=== PATIENT | female | born 1955 | race Caucasian/White ===

== ENCOUNTER 2025-03-04 11:03 | Outpatient (OUT) | payer MEDICARE, SELFPAY ==
--- OUTSIDE RECORDS SUMMARY | 2025-03-04 11:10 | XMS_ITS | Encounter Summary ---
Author Organization [facility] Address [address] [place], [place] [id number] Care Team Providers Care Civil Rights Investigator Name Role Phone Soham Sanford DO Primary Care Provider [phone] Carlos Kearns Unavailable Jack Castorena MD, PhD Unavailable [phone] Jack Castorena MD, PhD Unavailable [phone] Pcp, Neha REFRACTORY GRINDER OPERATOR Primary Care Provider Unavailabl e Source Comments In the event this information is protected by the Federal Confidentiality of Alcohol and Drug AbusePatient Records regulations: The Federal rules restrict any use of the information to criminally investigate or prosecute any alcohol or drug abuse patient.[facility] Encounter Details Date Type Department Care Team (Late st Contact Info) Description 10/26/2013 Abstract Cardiology [address] [place] [address] Carlos Kearns [address] [place], [place] [id number] Social History Tobacco Use Types Packs/Day Years Used Date Smoking Tobacco: Former Cigarettes S tarted: 01/15/2013 Comments:Pt decreased nicoti ne in electronic cigarettes Alcohol Use Standard Drinks/Week Comments No 0 (1 standard drink = 0.6 oz pur e alcohol) Comments Unknown Sex and Gender Information Value Date Recorded Sex Assigned at Not on file Legal Sex Female 8:19 AM EST Gender Identity Not on file Sexual Orientation Not on file documented as of this encounter Plan of Treatment Not on file documented as of this encounter Visit Diagnoses Not on filedocumented in this encounter Care Teams Civil Rights Investigator Relationship Specialty Start Date End Date Soham Sanford DO PCP - General Internal Medicine 08/17/13 04/09/22 Neha Alexis APRN PCP - General 04/10/22 10/26/22 Carlos Kearns Primary Staff Physician Cardiology 12/25/14 6 Jack Castorena MD, PhD Primary Staff Physician Cardiology 12/12/18 Jack Castorena MD, PhD Primary Staff Physician Cardiology 12/12/18 documented as of this encounter
--- OUTSIDE RECORDS SUMMARY | 2025-03-04 11:10 | XMS_ITS | Clinical Summary ---
Author Organization [facility] Address [address] [place] [address] Care Team Providers Care Transfer Controller Name Role Phone Soham Sanford DO Primary Care Provider [phone] Ez Maier MD Unavailable [phone] Aria Ibarra CNP Unavailable [phone] Allergies Active Allergy Reactions Criticality Noted Date Comments Atorvastatin 02/28/2020 ANTIHYPERLIPEDEMICS Bupropion Hcl Itching 08/17/2013 Medications aspirin 81 MG EC tablet Take 81 mg by mouth daily . Active amLODIPine (NORVASC) 5 MG tablet Take 5 mg by mouth daily . Active carvediloL (COREG) 25 MG tablet Take 25 mg by mouth 2 (two) times a day with meals . Active ubidecarenone (coenzyme Q10) 60 mg cap Take by mouth daily . Active ezetimibe (ZETIA) 10 mg tablet Take 10 mg by mouth daily . Active losartan (Cozaar) 100 MG tablet Take 100 mg by mouth daily . Active multivitamin (THERAGRAN) per tablet Take 1 tablet by mouth daily . Active cholecalciferol, vitamin D3, 1,000 unit tablet Take 2,000 Units by mouth 2 (two) times a day . Active atorvastatin (LIPITOR) 80 MG tablet Take 80 mg by mouth daily . Active clopidogreL (PLAVIX) 75 mg tablet Take 75 mg by mouth daily . 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 She is now approximately 11 months post left carotid subclavian artery bypass graft by Dr. Maier. She admits that her claudication symptoms have completely resolved. Bilateral radial pulses are 2+. 06/17/2020 left carotid subclavian artery bypass graft by Dr. Maier Carotid duplex today shows bilateral internal carotid arteries with <50% stenosis and left carotid subclavian artery bypass graft widely patent. -We will repeat carotid duplex in 1 yr -Continue atorvastatin, Plavix, and aspirin -Maintain blood pressure per JNC 8 guidelines <140/90 Assessment & Plan (11/07/2020 11:37 AM EST): Iesha has history of symptomatic claudication to left upper extremity. She is now approximately 5 months post left carotid subclavian artery bypass graft by Dr. Maier. She admits that her claudication symptoms have completely resolved. Bilateral radial pulses are 2+. 06/17/2020 left carotid subclavian artery bypass graft by Dr. Maier Carotid duplex today shows bilateral internal carotid arteries with 1% to 19% stenosis and left carotid subclavian artery bypass graft widely patent. -We will repeat carotid duplex in 6 months -Continue atorvastatin, Plavix, and aspirin -Maintain blood pressure per JNC 8 guidelines <140/90 Subclavian artery stenosis, left 05/24/2020 Assessment & Plan (08/01/2020 4:11 PM EST): Jovani has history of symptomatic claudication to left upper extremity. She is now approximately 2 months post left carotid subclavian artery bypass graft by Dr. Maier. She admits that her claudication symptoms have completely resolved. Bilateral radial pulses are 2+. 06/17/2020 left carotid subclavian artery bypass graft by Dr. Maier Carotid duplex today shows bilateral internal carotid arteries with 1% to 19% stenosis and left carotid subclavian artery bypass graft widely patent. -We will repeat carotid duplex in 3 months -Continue atorvastatin, Plavix, and aspirin -Maintain blood pressure per JNC 8 guidelines <140/90 Assessment & Plan (05/24/2020 9:51 AM EDT): The patient has very symptomatic claudication in her left upper extremity. Any repetitive activity causes significant discomfort in her arm. She does not have any posterior circulation symptoms. The patient had arch and subclavian artery angiography which I reviewed by Dr. Carlos Kearns. It clearly shows eccentric calcific atherosclerosis of the subclavian artery adjacent to the vertebral artery. She is a poor candidate for stent placement because of the proximity to the vertebral artery and the atherosclerotic calcified arch of the aorta which puts her at risk of atheroembolization. It also puts her at risk of dissection. For symptom relief I think the patient would be best served by a carotid subclavian artery bypass. I explained the complications of the procedure including phrenic nerve injury and thoracic duct lymphatic leaking. Obviously there can be complications such as thrombosis of the bypass graft, wound infection and systemic complications from general anesthesia and operative surgery. The patient is severely symptomatic and wishes to proceed. Hypertension Assessment & Plan (05/14/2021 11:22 AM EDT): Well-controlled per JNC 8 guidelines at 149/73 -Managed by PCP Assessment & Plan (11/07/2020 10:59 AM EST): Elevated per JNC 8 guidelines at 141/59 -Managed by PCP Assessment & Plan (08/01/2020 4:10 PM EST): Elevated per JNC 8 guidelines at 172/82 -Managed by PCP Family History Medical History Relation Comments Diabetes Brother Heart disease Brother Diabetes Father Heart disease Father No Known Problems Mother Diabetes Sister Heart disease Sister Relation Status Comments Brother Father Mother Sister Social History Tobacco Use Types Packs/Day Years Used Date Smoking Tobacco: Former Cigarettes 1 40 1 972 - 2011 Smokeless Tobacco: Current Alcohol Use Standard Drinks/Week Comments Yes 0 (1 standard drink = 0.6 oz pur e alcohol) Rare Comments Unknown Sex and Gender Information Value Date Recorded Sex Assigned at Not on file Legal Sex Female 8:35 AM EDT Gender Identity Female 05/11/2021 11:28 AM EDT Sexual Orientation Straight 05/11/2021 11 :28 AM EDT Last Filed Vital Signs Vital Sign Reading Time Taken Comments Blood Pressure 132/80 05/14/2021 11:07 AM EDT Pulse 60 05/14/2021 10:46 AM EDT Temperature 36.4 C (97.6 F) 06/18/2020 8:45 AM EDT Respiratory Rate 16 08/01/2020 3:44 PM EST Oxygen Saturation 93% 06/18/2020 8:45 AM EDT Inhaled Oxygen Concentration - - Weight 83.5 kg (184 lb) 05/14/2021 10:46 AM EDT Height 162.6 cm (5' 4 ) 05/14/2021 10:46 AM EDT Body Mass Index 31.58 05/14/2021 10:46 AM EDT Plan of Treatment Health Maintenance Due Date Last Done Comments CT Colonography 1954 Colonoscopy 1954 Colorectal Cancer Screening/Monitoring 1954 Dexa Scan 1955 Fecal DNA 1954 Fecal occult blood test (FOBT,FIT) 1954 Tetanus: Every 10yrs 1954 Wellness Visit 1957 Depression Screening/Follow-Up (PHQ-2/9) 1966 Hepatitis C Screening 1972 Pneumococcal Vaccine: Age 50 + (1 of 1 - PCV) 2004 Zoster Vaccines (1 of 2) 2004 Falls Risk Assessment 2019 COVID-19 Vaccine ( season) 05/27/202406/2021, 01/12/2021 Influenza Vaccine (Season Ended) 2025 Respiratory Syncytial Virus Immunization: Risk, 60-74 Risk, or 75+ (1 - 1-dose 75+ series) 2029 Medical Devices Implanted Type Area Digital Media Director Device Identifier Shelf Expiration Date Model / Serial / Lot Graft 16 X 8mm X 50cm Hemagard Knitted Bifurcated - Sna Implanted:Qty: 1 on 06/17/2020 by Ez Maier MD at [facility] Graft Left: Carotid [employer] 12/24/2024 [id number] / NA / [id number] Hemostat 8 X 12.5cm X 10mm Surgifoam Gelatin Sponge - Sna Implanted:Qty: 2 on 06/17/2020 by Ez Maier MD at [facility] Left: Carotid [employer] 01/24/2024 1974 / NA / [id number] Insurance MEDICARE PART A & B Member Subscriber Plan / Payer (Ef fective 2019-Present) Name:Iesha Ramirez Member ID:[id number] Relation to Subscriber:Self Name:Iesha Ramirez Subscriber ID:[id number] Payer ID:Not on file Group ID:Not on file Type:Not on file [place] [facility] [place] [facility] [place] [address] [address] [place] [address] [employer]/CONTINENTAL LIFE Advance Directives For more information, please contact: [phone] * Full Code - Unverified (Latest Code Status on File) Date Activated Date Inactivated Comments 06/17/2020 5:04 PM 06/18/2020 12:08 PM Care Teams Transfer Controller Relationship Specialty Start Date End Date Soham Sanford DO [address] [place] [address] [place] [address] PCP - General Internal Medicine 05/23/20 Ez Maier MD [address] [place] [address] Vascular Surgery 05/23/20 Aria Ibarra CNP [address] [place] [address] Nurse Practitioner Nurse Practitioner 10/14/20
--- OUTSIDE RECORDS SUMMARY | 2025-03-04 11:10 | XMS_ITS | Clinical Summary ---
Author Organization [facility] Address [address] [place] [address] Care Team Providers Care Saw Man Name Role Phone Jack Castorena MD, PhD Unavailable [phone] Allergies Active Allergy Reactions Criticality Noted Date Comments Bupropion Hcl Itching 08/17/2013 Medications CALCIUM CARBONATE/VITAMIN D3 (VITAMIN D-3 ORAL) Take 1 tablet by mouth once daily. Active carvedilol (COREG) 25 mg tablet Take 25 mg by mouth twice daily with meals. Active atorvastatin (LIPITOR) 80 mg tablet Take 80 mg by mouth once daily. Active Aspirin 81 mg tab Take 81 mg by mouth once daily. Currently not taking Active clopidogrel (PLAVIX) 75 mg tabletIndications :PAD (peripheral artery disease),Essentia l hypertension with goal blood pressure less than 130/80,S/P insertion of iliac artery stent Take 1 tablet by mouth 3 times a WEEK. Mon-Wed-Tue 6 Active Active Problems Problem Noted Date Diagnosed Date HLD (hyperlipidemia) 12/31/2014 HTN (hypertension) 12/31/2014 PAD (peripheral artery disease) 12/31/2014 S/P insertion of iliac artery stent 12/31/2014 Family History Medical History Relation Comments Developmental problem Daughter Diabetes Father Coronary Artery Disease Paternal Grandfather Heart Paternal Grandfather Relation Status Comments Daughter Father Paternal Grandfather Social History Tobacco Use Types Packs/Day Years Used Date Smoking Tobacco: Former Cigarettes 1 41.3 0 09/26/1971 - 01/15/2013 Comments:Pt decreased nicoti ne in electronic cigarettes Alcohol Use Standard Drinks/Week Comments No 0 (1 standard drink = 0.6 oz pur e alcohol) Comments Unknown Sex and Gender Information Value Date Recorded Sex Assigned at Not on file Legal Sex Female 8:19 AM EST Gender Identity Not on file Sexual Orientation Not on file 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 Job 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 Not on file Not on file Not on file Last Filed Vital Signs Vital Sign Reading Time Taken Comments Blood Pressure 158/79 01/29/2016 9:42 AM EDT Pulse 65 01/29/2016 9:42 AM EDT Temperature 36.2 C (97.2 F) 01/29/2016 9:42 AM EDT Respiratory Rate 16 01/29/2016 9:42 AM EDT Oxygen Saturation 98% 01/29/2016 9:42 AM EDT Inhaled Oxygen Concentration - - Weight 79.4 kg (175 lb) 01/29/2016 9:42 AM EDT Height 165.1 cm (5' 5 ) 01/29/2016 9:42 AM EDT Body Mass Index 29.12 01/29/2016 9:42 AM EDT Plan of Treatment Health Maintenance Due Date Last Done Comments Anxiety Screening 1972 Depression Screening 1972 Hepatitis C Screening 1972 DTaP,Tdap,Td Vaccine (1 - Tdap) [address] Colonography 1999 Cologuard (FIT-DNA) 1999 Colonoscopy 1999 Colorectal Cancer Screening 1999 Diabetes Screening 1999 Fecal Occult Blood 1999 Lipid Screening 1999 Sigmoidoscopy 1999 Pneumococcal Vaccine: 50+ (1 of 1 - PCV) 2004 Shingrix Vaccine (1 of 2) 2004 Bone Density Screening 2019 Covid-19 Vaccine ( - season) 2024 Advance Directive Discussion 09/26/2024 Influenza Vaccine (Season Ended) 2025 RSV Vaccine (1 - 1-dose 75+ series) 2029 Insurance [facility] Care Teams Saw Man Relationship Specialty Start Date End Date Jack Castorena MD, PhD Primary Staff Physician Cardiology 12/12/18
--- OUTSIDE RECORDS SUMMARY | 2025-03-04 11:10 | XMS_ITS | Clinical Summary ---
Author Organization [facility] Address [address] [place] [address] Care Team Providers Care Web Press Operator Helper Offset Name Role Phone Soham Sanford DO Primary Care Provider [phone] Allergies Active Allergy Reactions Criticality Noted Date Comments Bupropion Itching 02/18/2022 Medications aspirin EC [address] Take 1 tablet by mouth daily. Active carveDILOL 12.5 MG tablet Take 2 tablets by mouth 2 times daily with meals. Active LOSARTAN POTASSIUM PO Take 100 mg by mouth daily. Active ezetimibe 10 MG tablet Take 1 tablet by mouth daily. Active Vitamin D3 25 MCG (1000 UT) tablet Take 2 tablets by mouth 2 times daily. Active Coenzyme Q10 (CO Q 10 PO) Take by mouth daily. Active Multiple Vitamin (multivitamin) tablet Take 1 tablet by mouth daily. Active atorvastatin 80 MG tablet Take 1 tablet by mouth daily. Active clopidogrel 75 MG tabletIndicatio ns:Subclavian artery stenosis, left Take 1 tablet by mouth daily. 30 tablet 02/09/2021 Active Zinc Sulfate (ZINC-220 PO) Take 220 mg by mouth daily. Active amLODIPine 10 MG tablet Take 1 tablet by mouth daily. 90 tablet 3 08/12/2022 Active hydroCHLOROthia zide 25 MG tablet Take 1 tablet by mouth daily. Active Active Problems Problem Noted Date Diagnosed Date PAD (peripheral artery disease) 04/18/2020 Overview (04/18/2020): Added automatically from request for surgery [id number] body mass index of 40.0-49.9 02/29/2020 Encounters Date Type Department Care Team Description 02/15/2025 10:00 AM EDT Office Visit [facility] [address] [place] [address] Carlos Kearns MD Stenosis of subclavian bypass, sequela (Primary Dx); Essential hypertension, benign; Subclavian artery disease; Mixed hyperlipidemia; Antiplatelet or antithrombotic long-term use; Encounter for long-term current use of medication from Last 3 Months Family History Medical History Relation Name Comments Diabetes Father Heart Disease - Other Father Diabetes Sister Relation Name Status Comments Father Sister Social History Tobacco Use Types Packs/Day Years Used Date Smoking Tobacco: Former Smokeless Tobacco: Never Tobacco Cessation:Counseling Given: Not Answered Alcohol Use Standard Drinks/Week Comments Yes 0 (1 standard drink = 0.6 oz pur e alcohol) AUDIT-C Answer Date Recorded Q1: How often do you have a drink containing alc ohol? Monthly or less 08/28/2020 Average Number of Drinks Not on file 020 Frequency of Binge Drinking Not on file 11/2019 Comments No Sex and Gender Information Value Date Recorded Sex Assigned at Not on file Legal Sex Female 2:08 PM EDT Gender Identity Not on file Sexual Orientation Not on file Last Filed Vital Signs Vital Sign Reading Time Taken Comments Blood Pressure 154/68 02/15/2025 9:58 AM EDT Pulse 51 02/15/2025 9:58 AM EDT Temperature 36.5 C (97.7 F) 05/14/2020 12:40 PM EDT Respiratory Rate 18 08/03/2024 10:46 AM EST Oxygen Saturation 96% 02/15/2025 9:58 AM EDT Inhaled Oxygen Concentration - - Weight 72.8 kg (160 lb 9.6 oz) 02/15/2025 9:58 A M EDT Height 162.6 cm (5' 4 ) 02/15/2025 9:58 AM EDT Body Mass Index 27.57 02/15/2025 9:58 AM EDT Plan of Treatment Upcoming Encounters Date Type Department Care Team (Late st Contact Info) Description 09/06/2025 11:00 AM EST Office Visit [facility] Cardiology [address] [place] [address] Carlos Kearns MD [address] [place] [address] Health Maintenance Due Date Last Done Comments DEXA SCAN DISCUSSION 1954 HEPATITIS C VIRUS SCREENING 1954 TETANUS 1954 TDAP (ADULT) 1973 CERVICAL CANCER SCREENING DISCUSSION 1975 MAMMOGRAM SCREENING DISCUSSION 1994 COLORECTAL CANCER SCREENING DISCUSSION 1999 PNEUMOCOCCAL VACCINE SERIES (1 of 1 - PCV) 2004 POTASSIUM 05/14/2021 05/14/2020 COVID-19 VACCINE (3 - 2023-2 5 season) 2024 02/02/2021, 01/12/2021 INFLUENZA VACCINE (Season Ended) 2025 LIPID SCREENING 08/28/2025 08/28/2020 RSV VACCINE (1 - 1-dose 75+ series) 2029 ZOSTER (SHINGLES) VACCINE Completed 2023, 07/29/2023 HEP B VACCINE Aged Out No longer elig ible based on patient's age to complete this topic Procedures Procedure Name Priority Date/Time Associated Diagnosis Comments LABS (OUTSIDE) Routine 02/14/2025 11:11 AM EDT LIPID PANEL W CALCULATED LDL Routine 08/28/2020 3:05 PM EST Mixed hyperlipidemia BASIC METABOLIC PANEL STAT 05/14/2020 8:50 AM EDT from Last 3 Months or Most Recently Relevant to Health Maintenance Results * LABS (OUTSIDE) (02/14/2025 11:11 AM EDT) us Historical Provider LAB SEND OUTS Final Result * LIPID PANEL W CALCULATED LDL (08/28/2020 3:05 PM EST) CHOLESTEROL 122 107 - 217 MG/DL [address] TRIGLYCERIDE 107 0 - 150 MG/DL [address] HDL CHOLESTEROL 42 33 - 75 MG/DL [address] LDL CHOLESTEROL, CALCULATED 59 MG/DL [address] VLDL Cholesterol, Calculated 21 5.0 - 25 MG/DL [address] TCHOL/HDL RATIO, MANUAL ENTER 2.[address] Comment: RISK TOTAL/HDL RATIO MEN WOMEN 1/2 AVERAGE 3.43 3.27 AVERAGE 4.97 4.44 2X AVERAGE 9.55 7.05 3X AVERAGE 23.99 11.04 Testing performed at [place], [place] [address] Blood 08/28/2020 3:05 PM EST 08/28/2020 3:06 PM EST us Carlos Kearns MD CHEMISTRY ORDERABLES Final Re sult [address] [address] * (ABNORMAL) BASIC METABOLIC PANEL (05/14/2020 8:50 AM EDT) Glucose 122(H) 70 - 100 MG/DL [address] Comment: NORMAL <100 mg/dL PREDIABETES 101-126 mg/dL DIABETES 126 mg/dL or higher BUN 17 7 - 20 MG/DL [address] CREATININE SERUM 0.80 0.7 - 1.2 MG/DL [address] SODIUM 139 137 - 145 MMOL/L [address] Potassium 3.9 3.5 - 5.1 MMOL/L [address] CHLORIDE 103 98 - 107 MMOL/L [address] Comment:Please note: Triglyc eride levels of 600mg/dL or higher may positively bias chloride results by approximately 2.1 mmol CARBON DIOXIDE (CO2) 26 22 - 30 MMOL/L [address] ANION GAP 10 8 - 16 MMOL/L [address] CALCIUM 9.5 8.4 - 10.2 MG/DL [address] ESTIMATED GFR, NON AMER >60 ml/min/1. 73sq.m [address] ESTIMATED GFR, >60 ml/min/1. 73sq.m [address] GFR COMMENT Average GFR for 60-69 years old = 85. [address] Comment: Chronic Kidney disease, GFR = <60. Kidney failure, GFR = <15. The GFR estimate is not adjusted for extreme body surface area or acute process, nor has it been validated for women or ethnic groups other than and . Testing performed at [place], [place] [address] Blood 05/14/2020 8:50 AM EDT 05/14/2020 8:52 AM EDT us Carlos Kearns MD CHEMISTRY ORDERABLES Final Re sult [address] [address] from Last 3 Months or Most Recently Relevant to Health Maintenance Insurance MEDICARE A AND B MEDICARE SUPPLEMENT Advance Directives For more information, please contact: [phone] (7:30 AM - 6PM [facility], Tuesday-Tuesday) Documents on File Type Date Recorded Patient Maintenance Shop Manager Expl anation Advance Directives/Living Will 04/18/2020 2:56 PM patient advance directive assessment Care Teams Web Press Operator Helper Offset Relationship Specialty Start Date End Date Soham Sanford DO PCP - General Internal Medicine 02/29/20
[2025-03-04 11:52] LABS: Bilirubin Urine NEGATIVE (NEGATIVE); Blood Urine NEGATIVE (NEGATIVE); Clarity Urine CLEAR (CLEAR); Color Urine LT. YELLOW (YELLOW); Glucose Urine UA NEGATIVE (NEGATIVE); Ketones Urine NEGATIVE (NEGATIVE); Leukocyte Esterase Urine TRACE (NEGATIVE); Nitrite Urine NEGATIVE (NEGATIVE); Protein Urine NEGATIVE (NEG/TRACE); Urobilinogen Urine 0.2 EU/dL (0.2-1.0)
[2025-03-04 12:09] LABS: Anion Gap 14.2; BUN Creatinine Ratio 15.3; Carbon Dioxide 25.5 mmol/L (21.0-32.0); Chloride 98 mmol/L (98-107); Estimated GFR (African America 39 (>=60 mL/min/1.73m^2); Estimated GFR (Non-African Ame 33 (>=60 mL/min/1.73m^2); Glucose 125 mg/dL (74-106); Potassium 3.7 mmol/L (3.5-5.1); Sodium 134 mmol/L (136-145)
[2025-03-04 12:43] LABS: Creatinine Urine Random 84.27 mg/dL (20.00-300.00); Protein Creatinine Ratio Urine 0.13; Total Protein Urine Random 10.9 mg/dL (<=11.9)
== END 2025-03-04 11:04 | disposition home or self-care (01) ==
LOC: LAB 11:07
PROVIDERS: PCP Internal Medicine; Visit Provider Internal Medicine
DX: N17.9 Acute kidney failure, unspecified (principal); I10 Essential (primary) hypertension; E11.65 Type 2 diabetes mellitus with hyperglycemia
CPT/HCPCS: 36415; 80048; 81003; 82570; 84156

== ENCOUNTER 2025-07-12 08:43 | Outpatient (OUT) | payer MEDICARE, SELFPAY ==
--- NOTE | 2025-07-12 08:45 | US_ITS ---
The [address] [address] Patient Name: BLANE BACK MRN: [id number] date: 1955 Sex: F Assigned Patient Location: US Current Patient Location: US Accession/Order Number: [id number] Exam Date: 07/12/2025 08:48 Report Date: 07/12/2025 09:51 At the request of: SABINO MOREL DO Procedure: US renal BI BILATERAL RENAL AND BLADDER ULTRASOUND CLINICAL HISTORY: Renal cysts seen on prior lumbar MRI and chest CT, N28.1 COMPARISON: MRI 05/17/[address] 01/04/2020 The right kidney is atrophic with craniocaudal dimension of 7.7 cm. The left kidney is normal in size measuring 11.4 cm. A 5 mm echogenic focus with twinkle artifact is seen at the inferior pole of the left suggesting a stone. No hydronephrosis is identified. There is a small 8 mm cyst at the superior pole on the right. On the left, there are multiple cortical cysts with the largest measuring 2.3 x 1.5 x 1.8 cm with superior pole. No solid masses were documented. There is no perinephric fluid. The urinary bladder is not well distended with a volume of 32 ml. No obvious contour or intraluminal abnormalities are seen. US/US renal BI IMPRESSION: ATROPHIC RIGHT KIDNEY. POSSIBLE LEFT NEPHROLITHIASIS. SMALL RENAL CYSTS. NO OBSTRUCTIVE UROPATHY. Impression dictated by: Harini Pugh M.D. 07/12/2025 9:51 AM Dictation Location: [place] [address] Electronically authenticated by: [id number] Y Date: 07/12/2025 09:51
--- OUTSIDE RECORDS SUMMARY | 2025-07-12 08:45 | XMS_ITS | Clinical Summary ---
Author Organization [facility] Healthcare Address [address] [place] [address] Care Team Providers Care Musical Therapist Name Role Phone Soham Sanford Primary Care Provider [phone] Allergies Active Allergy Reactions Criticality Noted Date Comments Bupropion Itching 08/17/2013 Other Reaction(s): rash Medications acetaminophen (Tylenol) 500 MG tablet Take 1,000 mg by mouth 03/10/2025 Active amLODIPine (Norvasc) 10 MG tablet .COMPLEX 07/03/2024 Active aspirin 81 MG EC tablet 1 (one) time each day at the same time Active atorvastatin (Lipitor) 80 MG tablet .COMPLEX 10/06/2024 Active carvedilol (Coreg) 12.5 MG tablet Take 25 mg by mouth in the morning and 25 mg in the evening. Take with meals. Active cholecalciferol (Vitamin D-3) 50 MCG (1999) capsule Take 1 capsule by mouth in the morning and 1 capsule at noon and 1 capsule in the evening. Active clopidogrel (Plavix) 75 MG tablet Take 75 mg by mouth in the morning. Active coenzyme Q-10 100 MG capsule Take 100 mg by mouth in the morning. Active ezetimibe (Zetia) 10 MG tablet .COMPLEX 01/04/2025 Active losartan (Cozaar) 100 MG tablet Take 100 mg by mouth in the morning. Active losartan (Cozaar) 50 MG tablet Daily 03/10/2025 Active Multiple Vitamin (Multi-Vitamin) tablet Take 1 tablet by mouth in the morning. Active fluticasone (Flonase) 50 MCG/ACT nasal sprayIndication s:ETD (Eustachian tube dysfunction), left Two sprays on the left side twice daily. Shake gently. Before first use, prime pump. After use, clean tip and replace cap. 48 g 3 05/08/2025 Active Active Problems Problem Noted Date Diagnosed Date Acute lower respiratory infection 05/06/2025 Acute sinusitis 05/06/2025 JUAN C (acute kidney injury) 05/06/2025 Chronic kidney disease 05/06/2025 Chronic otitis media of left ear 05/06/2025 Eustachian tube dysfunction 05/06/2025 Eustachian tube salpingitis 05/06/2025 Otitis media 05/06/2025 Familial hypercholesterolemia 05/06/2025 Mixed conductive and sensori neural hearing loss of right ear with restricted hearing of left ear 05/06/2025 Renal cyst 05/06/2025 Overview (05/06/2025): US: 2.9cm left renal cyst w/ layering debris, 1cm left renal cyst w/ calcification and septations - 02/2025 Sensation of plugged ear on left side 05/06/2025 Overweight 05/06/2025 Type 2 diabetes mellitus with hyperglycemia 04/26 Epigastric abdominal pain 03/18/2025 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 03/07/25 @ [facility] GERD (gastroesophageal reflux disease) Lung nodule 03/07/2025 Overview (05/06/2025): CT ABD 03/06/25: Indeterminate 1.0 cm right lower lobe groundglass nodular opacity may represent a focal infectious/inflammatory process. 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 06/17/2020 Overview (05/06/2025): s/p left ICA-left to SCA bypass Stenosis of left subclavian artery 05/24/2020 Overview (05/06/2025): s/p left carotid-subclavian bypass Obesity, morbid, BMI 40.0-49.9 02/29/2020 HLD (hyperlipidemia) 12/31/2014 Primary hypertension 12/31/2014 S/P insertion of iliac artery stent 12/31/2014 Encounters Date Type Department Care Team Description 05/08/2025 10:30 AM EDT Office Visit [facility] [address] [place] [address] Cathi Chua MD Chronic otitis media of left ear (Primary Dx); ETD (Eustachian tube dysfunction), left 05/08/2025 Bamboo flowsheet [facility] [address] [place] [address] Cathi Chua MD 05/08/2025 Travel from Last 3 Months Social History Tobacco Use Types Packs/Day Years Used Date Smoking Tobacco: Former Cigarettes Smokeless Tobacco: Never Tobacco Cessation:Counseling Given: Not Answered Alcohol Use Standard Drinks/Week Comments Not Currently 0 (1 standard drink = 0.6 oz pur e alcohol) Occ Comments Unknown Sex and Gender Information Value Date Recorded Sex Assigned at Not on file Legal Sex Female 6:40 PM EDT Gender Identity Not on file Sexual Orientation Not on file Last Filed Vital Signs Vital Sign Reading Time Taken Comments Blood Pressure 150/63 05/08/2025 10:36 AM EDT Pulse 64 05/08/2025 10:36 AM EDT Temperature - - Respiratory Rate - - Oxygen Saturation - - Inhaled Oxygen Concentration - - Weight 69.9 kg (154 lb) 05/08/2025 10:36 AM EDT Height 162.6 cm (5' 4 ) 05/08/2025 10:36 AM EDT Body Mass Index 26.43 05/08/2025 10:36 AM EDT Plan of Treatment Upcoming Encounters Date Type Department Care Team (Late st Contact Info) Description 07/29/2025 9:00 AM EST Clinical Support [facility] [address] [facility] [address] [place] [phone] Lur[facility] aBll, [facility] [address] [facility] [place] [address] 07/31/2025 9:10 AM EST Office Visit [facility] [address] [facility] [address] [place] [phone] Cathi Chua MD [address] [facility] [address] [place], [place] [id number] Health Maintenance Due Date Last Done Comments CT Colonography 1954 Colonoscopy 1954 Colorectal Cancer Screening 1954 FIT-DNA 1954 FIT 1954 FOBT 1954 Sigmoidoscopy 1954 Mammogram 1994 Influenza Vaccine (#1) 2025 Pneumococcal Vaccine: 65+ Years Completed , 12/26/2019 Insurance MEDICARE [employer] Care Teams Musical Therapist Relationship Specialty Start Date End Date Soham Sanford DO [address] [place] [address] PCP - General Internal Medicine 04/22/25
--- OUTSIDE RECORDS SUMMARY | 2025-07-12 08:45 | XMS_ITS | Encounter Summary ---
Author Organization [facility] Address [address] [id number] Care Team Providers Care Management Psychologist Name Role Phone Jack Castorena MD, PhD Unavailable [phone] Soham Sanford DO Primary Care Provider [phone] Source Comments In the event this information is protected by the Federal Confidentiality of Alcohol and Drug AbusePatient Records regulations: The Federal rules restrict any use of the information to criminally investigate or prosecute any alcohol or drug abuse patient.[facility] Reason for Visit * Reason Comments Appointment Encounter Details Date Type Department Care Team (Late st Contact Info) Description 03/13/2025 Telephone NOC [address] [id number] (Hist), No Pcp Appointment Social History Tobacco Use Types Packs/Day Years Used Date Smoking Tobacco: Former Cigarettes 1 41.3 0 09/26/1971 - 01/15/2013 Comments:Pt decreased nicoti ne in electronic cigarettes Alcohol Use Standard Drinks/Week Comments Not Currently 0 (1 standard drink = 0.6 oz pur e alcohol) Area Deprivation Index Answer Date Robert rded National Score (1-100), lower number is lower ri sk 67 03/07/2025 State Score (1-10), lower number is lower risk 5 03/07/2025 Data from: https://www.neighborhoodatlas.medicine.[facility]/. 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 Answer Date of Assessment Author No 03/10/2025 12:56 PM EDT Yael Mattson RN * Are you blind or do you have serious difficulty seeing, even when wearing glasses? Answer Date of Assessment Author No 03/10/2025 12:56 PM EDT Yael Mattson RN * Do you have serious difficulty walking or climbing stairs? Answer Date of Assessment Author No 03/10/2025 12:56 PM EDT Yael Mattson RN * Do you have difficulty dressing or bathing? Answer Date of Assessment Author No 03/10/2025 12:56 PM EDT Yael Mattson RN * Because of a physical, mental, or emotional condition, do you have difficulty doing errands alone such as visiting a doctor's office or shopping? Answer Date of Assessment Author No 03/10/2025 12:56 PM EDT Yael Mattson RN documented as of this encounter Mental Status * Because of a physical, mental, or emotional condition, do you have serious difficulty concentrating, remembering, or making decisions? Answer Entry Date Author No 03/10/2025 12:56 PM EDT Yael Mattson RN documented in this encounter Miscellaneous Notes * Telephone Encounter - Fer Fermin - 03/13/2025 10:05 AM EDT Reason for call: Pt called and she would like to schedule an appt with Vascular surgery Contact name: Home and cell number:[phone] Diagnosis: Renal artery stenosis, mesenteric stenosis, PAD with claudication Fer Gonzalez documented in this encounter Plan of Treatment Upcoming Encounters Date Type Department Care Team (Late st Contact Info) Description 09/16/2025 10:00 AM EST Office Visit Vascular Surgery [address] [place] [address] PAD (peripheral artery disease) 09/16/2025 11:00 AM EST Office Visit Vascular Surgery [address] [place] [address] PAD (peripheral artery disease) 09/16/2025 12:30 PM EST Office Visit Vascular Surg Dept [address] [place] [address] Fannie Flowers MD [address] [place] [address] PAD (peripheral artery disease) documented as of this encounter Visit Diagnoses Not on filedocumented in this encounter Care Teams Management Psychologist Relationship Specialty Start Date End Date Soham Sanford DO [address] [place] [address] [place] [address] PCP - General Internal Medicine 04/01/25 Jack Castorena MD, PhD Primary Staff Physician Cardiology 12/12/18 documented as of this encounter
--- OUTSIDE RECORDS SUMMARY | 2025-07-12 08:45 | XMS_ITS | Clinical Summary ---
Author Organization [facility] Address [address] [place] [address] Care Team Providers Care Manager Warehouse Name Role Phone Soham Sanford DO Primary Care Provider [phone] Ez Maier MD Unavailable [phone] Aria Ibarra CNP Unavailable [phone] Allergies Active Allergy Reactions Criticality Noted Date [...] Risk Assessment 2019 COVID-19 Vaccine ( season) 05/27/202506/2021, 01/12/2021 Influenza Vaccine (#1) 2025 Respiratory Syncytial Virus Immunization: Risk, 60-74 Risk, or 75+ (1 - 1-dose 75+ series) 2029 Medical Devices Implanted Type Area Radiology Administrator Device Identifier Shelf Expiration Date Model / Serial / Lot Graft 16 X 8mm X 50cm Hemagard Knitted Bifurcated - Sna Implanted:Qty: 1 on 06/17/2020 by Ez Maier MD at [facility] Graft Left: Carotid [employer] 12/24/2024 [id number] / NA / [id number] Hemostat 8 X 12.5cm X 10mm Surgifoam Gelatin Sponge - Sna Implanted:Qty: 2 on 06/17/2020 by Ez Maier MD at [facility] Left: Carotid [employer] 01/24/2024 [id number] / NA / [id number] Insurance MEDICARE PART A & B Member Subscriber Plan / Payer (Ef fective 2019-Present) Name:Iesha Ramirez Member ID:[id number] Relation to Subscriber:Self Name:Iesha Ramirez Subscriber ID:[id number] Payer ID:Not on file Group ID:Not on file Type:Not on file Address: [facility] [address] PART A CLAIMS [address] [address] [place] [address] [employer]AL LIFE Advance Directives For more information, please contact: [phone] * Full Code - Unverified (Latest Code Status on File) Date Activated Date Inactivated Comments 06/17/2020 5:04 PM 06/18/2020 12:08 PM Care Teams Manager Warehouse Relationship Specialty Start Date End Date Soham Sanford DO [address] [place] [address] [place] [address] PCP - General Internal Medicine 05/23/20 Ez Maier MD [address] [place] [address] Vascular Surgery 05/23/20 Aria Ibarra CNP [address] [place] [address] Nurse Practitioner Nurse Practitioner 10/14/20
--- OUTSIDE RECORDS SUMMARY | 2025-07-12 08:46 | XMS_ITS | Encounter Summary ---
Author Organization [facility] Address [address] [place], [place] [id number] Care Team Providers Care Vegetable Sorter Name Role Phone Soham Sanford DO Primary Care Provider [phone] Carlos Kearns Unavailable Jack Castorena MD, PhD Unavailable [phone] Jack Castorena MD, PhD Unavailable [phone] Pcp, No Primary Care Provider Unavailabl e Soham Sanford DO Primary Care Provider [phone] Source Comments In the event this information is protected by the Federal Confidentiality of Alcohol and Drug AbusePatient Records regulations: The Federal rules restrict any use of the information to criminally investigate or prosecute any alcohol or drug abuse patient.[facility] Encounter Details Date Type Department Care Team (Late st Contact Info) Description 10/26/2013 Abstract Cardiology [address] [place] [address] Carlos Kearns [address] [place] [address] Social History Tobacco Use Types Packs/Day Years [...] as of this encounter Plan of Treatment Upcoming Encounters Date Type Department Care Team (Late st Contact Info) Description 09/16/2025 10:00 AM EST Office Visit Vascular Surgery [address] [place] [address] PAD (peripheral artery disease) 09/16/2025 11:00 AM EST Office Visit Vascular Surgery [address] [place] [address] PAD (peripheral artery disease) 09/16/2025 12:30 PM EST Office Visit Vascular Surg Dept [address] [place] [address] Fannie Flowers MD [address] [place], [place] [phone] PAD (peripheral artery disease) documented as of this encounter Visit Diagnoses Not on filedocumented in this encounter Care Teams Vegetable Sorter Relationship Specialty Start Date End Date Soham Sanford DO PCP - General Internal Medicine 08/17/13 04/09/22 Pcp, Neha PCP - General 04/10/22 10/26/22 Soham Sanford DO [address] [place] [address] PCP - General Internal Medicine 04/01/25 Carlos Kearns Primary Staff Physician Cardiology 12/25/14 6 Jack Castorena MD, PhD Primary Staff Physician Cardiology 12/12/18 Jack Castorena MD, PhD Primary Staff Physician Cardiology 12/12/18 documented as of this encounter
--- OUTSIDE RECORDS SUMMARY | 2025-07-12 08:46 | XMS_ITS | Clinical Summary ---
Author Organization [facility] Address [address] [facility] [place] [address] Care Team Providers Care Lead Esthetician Name Role Phone Soham Sanford DO Primary Care Provider [phone] Allergies Active Allergy Reactions Criticality Noted Date [...] Take 1 tablet by mouth daily. Active acetaminophen 500 MG tablet Take 2 tablets by mouth Every 8 hours as needed. 03/10/2025 Active Pantoprazole [address] tablet DR Take 1 tablet by mouth 2 times daily. 03/10/2025 Active Active Problems Problem Noted Date Diagnosed Date PAD (peripheral artery disease) 04/18/2020 Overview (04/18/2020): Added automatically from request for surgery [id number] body mass index of 40.0-49.9 02/29/2020 Encounters Date Type Department Care Team Description 05/22/2025 10:00 AM EDT - 05/22/2025 11:59 PM EDT Hospital Encounter [facility] [address] [place] [address] Fannie Flowers MD Discharge Disposition: Home or Self Care 05/14/2025 12:48 PM EDT - 05/14/2025 11:59 PM EDT Hospital Encounter [facility] [address] [place] [address] Fannie Flowers MD Discharge Disposition: Home or Self Care 05/14/2025 Telephone [facility] [address] [place] [address] Cassie Rios LPN Order Request 05/02/2025 Telephone [facility] [address] [place] [address] Carlos Kearns MD Appointment; Orders 04/15/2025 9:04 AM EDT - 04/15/2025 11:59 PM EDT Hospital Encounter [facility] ECHOCARDIOGRAP[facility] [address] [place] [address] Carlos Kearns MD Discharge Disposition: Home or Self Care 04/15/2025 9:04 AM EDT - 04/15/2025 11:59 PM EDT Hospital Encounter [facility]LE[facility]0 [address] [place] [address] Carlos Kearns MD Discharge Disposition: Home or Self Care from Last 3 Months Family History Medical [...] Sign Reading Time Taken Comments Blood Pressure 162/60 04/05/2025 11:43 AM EDT Pulse 60 04/05/2025 11:43 AM EDT Temperature 36.5 C (97.7 F) 05/14/2020 12:40 PM EDT Respiratory Rate 18 08/03/2024 10:46 AM EST Oxygen Saturation 96% 04/05/2025 11:43 AM EDT Inhaled Oxygen Concentration - - Weight 72.8 kg (160 lb 9.6 oz) 02/15/2025 9:58 A M EDT Height 162.6 cm (5' 4 ) 04/05/2025 11:43 AM EDT Body Mass Index 27.57 02/15/2025 9:58 AM EDT Plan of Treatment Upcoming Encounters Date Type Department Care Team (Late st Contact Info) Description 07/18/2025 8:30 AM EDT Office Visit [facility] [address] [id number] Bryn Urbina PA-C [address] [place] [address] 09/06/2025 11:00 AM EST Office Visit [facility] [address] [place] [address] Carlos Kearns MD [address] [place] [address] Health Maintenance Due Date Last Done Comments DEXA SCAN DISCUSSION 1954 HEPATITIS C VIRUS SCREENING 1954 TETANUS 1954 TDAP (ADULT) 1973 CERVICAL CANCER SCREENING DISCUSSION 1975 MAMMOGRAM SCREENING DISCUSSION 1994 COLORECTAL CANCER SCREENING DISCUSSION 1999 PNEUMOCOCCAL VACCINE SERIES (1 of 1 - PCV) 2004 RSV VACCINE (1 - Risk 50-74 years 1-dose series) 2004 POTASSIUM 05/14/2021 05/14/2020 COVID-19 VACCINE (3 - 2024-2 6 season) 2025 02/02/2021, 01/12/2021 INFLUENZA VACCINE (#1) 2025 LIPID SCREENING 08/28/2025 08/28/2020 ZOSTER (SHINGLES) VACCINE Completed 2023, 07/29/2023 HEP B VACCINE Aged Out No longer elig ible based on patient's age to complete this topic Procedures Procedure Name Priority Date/Time Associated Diagnosis Comments VASC DUPLEX ARTERIAL EXTREMITY LOWER BILATERAL PERFORMED Routine 05/22/2025 10:57 AM EDT Peripheral vascular disease, unspecified VASC ANKLE BRACHIAL INDEX PERFORMED Routine 05/14/2025 1:35 PM EDT Severe peripheral arterial disease ME ECHOCARDIOGRAM W/O 3D Routine 04/15/2025 11:48 AM EDT Stenosis of subclavian bypass, sequela Essential hypertension, benign Subclavian artery disease Mixed hyperlipidemia Antiplatelet or antithrombotic long-term use PAD (peripheral artery disease) Stenosis of carotid artery, unspecified laterality Claudication Acute pancreatitis, unspecified complication status, unspecified pancreatitis type Atherosclerosis of aorta NUC MYOCARD PERF STRESS MIBI - REST, STRESS, AND ECG Routine 04/15/2025 11:14 AM EDT Stenosis of subclavian bypass, sequela Essential hypertension, benign Subclavian artery disease Mixed hyperlipidemia Antiplatelet or antithrombotic long-term use PAD (peripheral artery disease) Stenosis of carotid artery, unspecified laterality Claudication Acute pancreatitis, unspecified complication status, unspecified pancreatitis type Ischemic cardiomyopathy LIPID PANEL W CALCULATED LDL Routine 08/28/2020 3:05 PM EST Mixed hyperlipidemia BASIC METABOLIC PANEL STAT 05/14/2020 8:50 AM EDT from Last 3 Months or Most Recently Relevant to Health Maintenance Results * VASC DUPLEX ARTERIAL EXTREMITY LOWER BILATERAL PERFORMED (05/22/2025 10:57 AM EDT) Anatomical Region Laterality Modality Ultrasound 05/22/2025 12:4 0 PM EDT 05/22/2025 10:08 AM EDT Narrative 05/23/2025 10:38 PM EDT APPROVED REPORT Conclusion No evidence high grade stenosis in the bilateral LE. DP/PT flow bilaterally. Lower vesuspicious.locities in the LLE, consider left iliac inflow disease if clinically Laterality: Bilateral Indications PAD VELOCITY AND DOPPLER WAVEFORM ANALYSIS RIGHT PSV ESV Waveform LEFT PSV ESV Waveform EIA 87.7 18.0 Monophasic EIA 71.6 14.6 Monophasic DEPUTY DIRECTOR OF PUBLIC WORKS 59.1 6.4 Monophasic DEPUTY DIRECTOR OF PUBLIC WORKS 40.7 7.4 Monophasic Profunda 87.6 7.6 Monophasic Profunda 26.4 8.7 Monophasic SFA Proximal 65.7 3.9 Monophasic SFA Proximal 36.3 7.3 Monophasic SFA Mid 65.7 2.7 Monophasic SFA Mid 39.1 7.3 Monophasic SFA Distal 56.0 0.9 Biphasic SFA Distal 28.4 4.4 Monophasic Pop A Proximal 60.2 1.5 Biphasic Pop A Proximal 21.8 4.2 Monophasic REUBEN 49.0 0.0 Biphasic REUBEN 18.2 4.6 Monophasic UNDER BASTER 52.9 0.0 Monophasic UNDER BASTER 12.7 2.6 Monophasic DPA 55.1 2.7 Monophasic DPA 26.3 5.2 Monophasic Findings Tech notes: No occlusions or large calcifications visualized. Diminished flow visualized in the left lower extremity. Conclusion No evidence high grade stenosis in the bilateral LE. DP/PT flow bilaterally. Lower vesuspicious.locities in the LLE, consider left iliac inflow disease if clinically Procedure Note Carlos Kearns MD - 05/23/2025 APPROVED REPORT Conclusion No evidence high grade stenosis in the bilateral LE. DP/PT flow bilaterally. Lower vesuspicious.locities in the LLE, consider left iliac inflow diseaseif clinically Laterality: Bilateral Indications PAD VELOCITY AND DOPPLER WAVEFORM ANALYSIS RIGHTPSVESVWaveformLEFTPSVESVWaveform EIA 87.7 18.6QrruxqamlmHGB01.614.6Monophasic CFA59.1 6.1JehmzazvksIRE51.77.4Monophasic Sugtqyeh80.67.3IchzivzhhyDrxknqkj95.48.7Monophasic SFA Ckvkzmua89.73.9MonophasicSFA Yueonjrr34.37.3Monophasic SFA Mid65.72.7MonophasicSFA Mid39.17.3Monophasic SFA Ghzfhw29.00.9BiphasicSFA Zdyakv61.44.4Monophasic Pop A Pahtawyw41.21.5BiphasicPop A Qkymrtyn17.84.2Monophasic ATA49.00.0EnhftonnNUN43.24.6Monophasic PTA52.90.2HqisksaoyzTUB95.72.6Monophasic DPA55.12.2RgzdzqbqjxUYT93.35.2Monophasic Findings Tech notes: No occlusions or large calcifications visualized. Diminishedflow visualized in the left lower extremity. Conclusion No evidence high grade stenosis in the bilateral LE. DP/PT flow bilaterally. Lower vesuspicious.locities in the LLE, consider left iliac inflow diseaseif clinically us Provider Not In System [facility] NON INVASIVE IMAG[facility] Final Result * VASC ANKLE BRACHIAL INDEX PERFORMED (05/14/2025 1:35 PM EDT) Anatomical Region Laterality Modality Ultrasound 05/14/2025 2:11 PM EDT 05/14/2025 12:01 PM EDT Narrative 05/14/2025 3:41 PM EDT APPROVED REPORT Conclusion Right ADINA: .71 Mild to moderate PAD. Left ADINA: .47 Severe PAD Bilateral abnornal ADINA. Exam Type: Ankle to Brachial Index Indications Claudication: Bilaterally PAD History of Smoking CAD Risk Factors History of PAD: Bilaterally Hypertension CAD Hyperlipidemia Cardiac Disease CAD Pressures/Indices Right Indices Left Indices Brachial 180mmHg Brachial Ankle(PT) 122mmHg 0.68 Ankle(PT) 85mmHg 0.47 Ankle(DP) 128mmHg 0.71 Ankle(DP) 78mmHg 0.43 Digit 102mmHg 0.57 Digit 42mmHg 0.23 Findings Right ADINA, .71 Left ADINA , .47 Bilateral abnornal ADINA. Procedure Note Carlos Kearns MD - 05/14/2025 APPROVED REPORT Conclusion Right ADINA: .71 Mild to moderate PAD. Left ADINA: .47 Severe PAD Bilateral abnornal ADINA. Exam Type: Ankle to Brachial Index Indications Claudication: Bilaterally PAD History of Smoking CAD Risk Factors History of PAD: Bilaterally Hypertension CAD Hyperlipidemia Cardiac Disease CAD Pressures/Indices RightIndices LeftIndices Brachial 180mmHgBrachial Ankle(PT) 138lmQv7.68Ankle(PT) 08klGr6.47 Ankle(DP) 864guWu6.71Ankle(DP) 33ilOw4.43 Digit 510xxPg2.57Digit 30mhXx6.23 Findings Right ADINA, .71 Left ADINA , .47 Bilateral abnornal ADINA. us Provider Not In System [facility] NON INVASIVE IMAG[facility] Final Result * ME ECHOCARDIOGRAM W/O 3D (04/15/2025 11:48 AM EDT) Anatomical Region Laterality Modality Ultrasound 04/15/2025 11:5 6 AM EDT 04/15/2025 10:20 AM EDT Narrative 04/15/2025 11:02 PM EDT APPROVED REPORT Other Information Study Quality: Adequate Conclusion Normal LV and RV size and function, estimated EF 65%. Grade II diastolic dysfunction. Moderate LAE. Mild valvular disease. Left Ventricle The left ventricle is normal. Left ventricular systolic function is normal. The posterior wall thickness is normal. The septal thickness is mildly increased. There is normal LV segmental wall motion. Moderate diastolic dysfunction is present (pseudonormal filling). LVEF is 65%. Right Ventricle The right ventricle size is normal. The right ventricular systolic function is normal. Atria The left atrium is moderately dilated. Right atrium is mildly dilated. Aortic Valve The aortic valve is normal in structure. There is no aortic valvular stenosis. No aortic regurgitation is present. Mitral Valve The mitral valve is normal in structure. There is mild mitral valve regurgitation noted. Tricuspid Valve The tricuspid valve is normal in structure. There is mild tricuspid valve regurgitation noted. Pulmonic Valve Pulmonic valve is not well visualized. There is no significant pulmonic valvular regurgitation. Great Vessels The aortic root size is normal. The ascending aorta size is normal. Pericardium Mild circumferential pericardial effusion. No echo indications of pericardial tamponade. EXAM: Comprehensive 2D, Doppler, and color-flow Echocardiogram Imaging system used: [facility] 2D Dimensions IVSd 1.2 cm F: 0.6-0.9 LVEF (Zhang's) 66.26 % F: 54 - 74 PWd 0.9 cm F: 0.6 - 0.9 EF AP4-a2DQ 64.92 % LVDd 4.3 cm F: 3.8 - 5.2 EF AP2-a2DQ 67.66 % LVDs 3.61 cm F: 2.2 - 3.5 EF BP-a2DQ 66.26 % Aortic Root 2.71 cm F: 2.7 - 3.3 LVESV 23 mL Aortic Root Index 1.5 cm/m2 LVEDV 67.10 mL F: 46 - 106 Ascending Aorta 2.52 cm F: 2.3 - 3.1 LV Volume Index 37.70 mL/m2 F: 29 - 61 Ascending Aorta Index: 1.4 cm/m2 LA Volume 103.5 mL Left Atrium 4.54 cm F: 2.7 - 3.8 LA Volume Index 58.15 mL/m2 (M/F) 16-34 LVOT 1.73 cm (M/F) 1.5-2.5 RV Major 3.22 cm TAPSE 2.6 >1.7 cm RV Minor 6.58 cm IVC 1.6 cm RVIDd 2.80 cm (M/F) 2.5-4.1 Right Atrium 5.2 cm (M/F) 2.9-4.5 LV Diastology E/A Ratio 1.5 Septal E' 0.07 (>=.07 m/s) LAT E' 0.07 (>=.10 m/s) E/LAT E' Ratio 15.64 (<=14) Septal E/E' 16.14 Aortic Valve LVOT Max 1.28 (0.7-1.1 m/s) LVOT VTI 30.75 cm LVOT Peak GR 6.61 mmHg LVOT Mean GR 2.91 mmHg AV DI 0.70 (>0.25) AoV Peak Contreras. 1.75 (0.5-1.3 m/s) AV Vmean 1.11 m/s AO Peak GR. 12.28 mmHg AO Mean GR. 5.58 (<5 mmHg) AO VTI 43.7 (18-25 cm) MISHEL (VTI) 1.66 (2.5-4.5 cm2) Mitral Valve MV E Max Contreras. 1.1 (0.4-1.3 m/s) MV A Velocity 0.75 (0.4-1.3 m/s) E/A Ratio 1.44 MV PHT 104.83 ms MVA PHT 2.10 cm2 MR Vmax 5.58 m/s MV Dec Mcleod 611.04 cm/s2 MV Decel. Time 177.62 (160-240 ms) Tricuspid Valve TR P. Velocity 3.19 m/s RAP Estimate 3 mmHg RVSP 43.78 mmHg TR maxPG 40.78 mmHg Procedure Note Carlos Kearns MD - 04/15/2025 APPROVED REPORT Other Information Study Quality: Adequate Conclusion Normal LV and RV size and function, estimated EF 65%. Grade II diastolic dysfunction. Moderate LAE. Mild valvular disease. Left Ventricle The left ventricle is normal. Left ventricular systolic function isnormal. The posterior wall thickness is normal. The septal thickness ismildly increased. There is normal LV segmental wall motion. Moderatediastolic dysfunction is present (pseudonormal filling). LVEF is 65%. Right Ventricle The right ventricle size is normal. The right ventricular systolicfunction is normal. Atria The left atrium is moderately dilated. Right atrium is mildly dilated. Aortic Valve The aortic valve is normal in structure. There is no aortic valvularstenosis. No aortic regurgitation is present. Mitral Valve The mitral valve is normal in structure. There is mild mitral valveregurgitation noted. Tricuspid Valve The tricuspid valve is normal in structure. There is mild tricuspid valveregurgitation noted. Pulmonic Valve Pulmonic valve is not well visualized. There is no significant pulmonicvalvular regurgitation. Great Vessels The aortic root size is normal. The ascending aorta size is normal. Pericardium Mild circumferential pericardial effusion. No echo indications ofpericardial tamponade. EXAM: Comprehensive 2D, Doppler, and color-flow Echocardiogram Imaging system used: GE 2D Dimensions IVSd 1.2 cm F: 0.6-0.9LVEF (Zhang's)66.26 % F: 54 - 74 PWd 0.9 cm F: 0.6 - 0.9EF AP4-a2DQ64.92 % LVDd 4.3 cm F: 3.8 - 5.2EF AP2-a2DQ67.66 % LVDs 3.61 cm F: 2.2 - 3.5EF BP-a2DQ66.26 % Aortic Root 2.71 cm F: 2.7 - 3.5KZQHC32 mL Aortic Root Index1.5 cm/c1OCEKF03.10 mL F: 46 - 106 Ascending Aorta 2.52 cm F: 2.3 - 3.1LV Volume Index37.70 mL/m2 F: 29 -61 Ascending Aorta Index: 1.4 cm/m2LA Iarkcd392.5 mL Left Atrium 4.54 cm F: 2.7 - 3.8LA Volume Index58.15 mL/m2 (M/F)16-34 LVOT1.73 cm (M/F) 1.5-2.5RV Major 3.22 cm TAPSE 2.6 >1.7 cmRV Minor6.58 cm IVC1.6 cmRVIDd2.80 cm (M/F) 2.5-4.1 Right Atrium 5.2 cm (M/F) 2.9-4.5 LV Diastology E/A Ratio 1.5Septal E'0.07 (>=.07 m/s) LAT E'0.07 (>=.10 m/s)E/LAT E' Ratio15.64 (<=14) Septal E/E'16.14 Aortic Valve LVOT Max1.28 (0.7-1.1 m/s)LVOT VTI30.75 cm LVOT Peak GR6.61 mmHgLVOT Mean GR2.91 mmHg AV DI0.70 (>0.25)AoV Peak Contreras.1.75 (0.5-1.3 m/s) AV Vmean 1.11 m/Toribio Peak GR.12.28 mmHg AO Mean GR.5.58 (<5 mmHg)AO VTI43.7 (18-25 cm) MISHEL (VTI)1.66 (2.5-4.5 cm2) Mitral Valve MV E Max Contreras.1.1 (0.4-1.3 m/s)MV A Velocity0.75 (0.4-1.3 m/s) E/A Ratio1.44MV OUG998.83 ms MVA PHT2.10 cm2MR Vmax5.58 m/s MV Dec Mcleod 611.04 cm/s2MV Decel. Xyqf993.62 (160-240 ms) Tricuspid Valve TR P. Velocity3.19 m/sRAP Estimate3 mmHg RVSP43.78 mmHgTR maxPG 40.78 mmHg us Carlos Kearns MD ECHO ORDERABLES Final Result * NUC MYOCARD PERF STRESS MIBI - REST, STRESS, AND ECG (04/15/2025 11:14 AM EDT) Anatomical Region Laterality Modality Chest Nuclear Medicine 04/15/2025 11:0 7 AM EDT 04/15/2025 9:42 AM EDT Narrative 04/15/2025 2:50 PM EDT APPROVED REPORT NM EXAM: Myocardial Perfusion REST/STRESS Imaging Protocol: Rest Tc-99m/Stress Tc-99m 1 day Medical History Pretest Chest Pain Characteristics: No chest pain Nuclear Conclusion ECG Findings: non-diagnostic Clinical Findings: non-diagnostic Nuclear Findings: negative for ischemia Exercise Capacity: not assessed Left Ventricular Function: normal Risk Study: low Normal chemical stress MPI study. Study Data Post stress, the left ventricular ejection fraction was 73.0%. TID = 1.07. Resting Data Rest SPECT myocardial perfusion imaging was performed in supine position following the intravenous injection of 10 mCi of Tc-99m Sestamibi. Time of rest injection: 0915 Administration Route: IV Administration Site: Left AC Pharmacologic Stress Pharmacologic stress test was performed by injecting Regadenoson 0.4 mg IV push followed by the intravenous injection of 29.8 mCi of Tc-99m Sestamibi. Time of stress injection: 1015 Administration Route: IV Administration Site: Left AC Comments patient unable to complete prone imaging Stress ECG Conclusion Non diagnostic stress test Spo2>95% on room air Clinical Reason for Termination: Completed protocol Stress Symptoms: None Stress Test Details Stress Test: Pharmacologic stress testing performed using 0.4 mg of regadenoson per 5 mL given IV over 10 seconds. HR Resting HR: 63 bpm Max Heart Rate (APMHR): 150 bpm Max HR Achieved: 74 bpm Target HR (85% APMHR): 128 bpm % of APMHR: 49 Recovery HR: 74 bpm HR response to stress: appropriate BP Resting BP: 160/74 mmHg Max BP: 160/74 mmHg BP response to stress: Resting hypertension-appropriate response ECG Resting ECG: NSR Arrhythmia: ventricual premature beats-isolated Conclusion Non diagnostic stress test Spo2>95% on room air Procedure Note Carlos Kearns MD - 04/15/2025 APPROVED REPORT NM EXAM: Myocardial Perfusion REST/STRESS Imaging Protocol: Rest Tc-99m/Stress Tc-99m 1 day Medical History Pretest Chest Pain Characteristics: No chest pain Nuclear Conclusion ECG Findings: non-diagnostic Clinical Findings: non-diagnostic Nuclear Findings: negative for ischemia Exercise Capacity: not assessed Left Ventricular Function: normal Risk Study: low Normal chemical stress MPI study. Study Data Post stress, the left ventricular ejection fraction was 73.0%. TID = 1.07. Resting Data Rest SPECT myocardial perfusion imaging was performed in supine positionfollowing the intravenous injection of 10 mCi of Tc-99m Sestamibi. Time of rest injection: 0915 Administration Route: IV Administration Site: Left AC Pharmacologic Stress Pharmacologic stress test was performed by injecting Regadenoson 0.4 mg IVpush followed by the intravenous injection of 29.8 mCi of Tc-99mSestamibi. Time of stress injection: 1015 Administration Route: IV Administration Site: Left AC Comments patient unable to complete prone imaging Stress ECG Conclusion Non diagnostic stress test Spo2>95% on room air Clinical Reason for Termination: Completed protocol Stress Symptoms: None Stress Test Details Stress Test: Pharmacologic stress testing performed using 0.4 mg ofregadenoson per 5 mL given IV over 10 seconds. HR Resting HR: 63 bpmMax Heart Rate (APMHR): 150 bpm Max HR Achieved: 74 bpmTarget HR (85% APMHR): 128 bpm % of APMHR: 49 Recovery HR: 74 bpm HR response to stress: appropriate BP Resting BP: 160/74 mmHg Max BP: 160/74 mmHg BP response to stress: Resting hypertension-appropriate response ECG Resting ECG: NSR Arrhythmia: ventricual premature beats-isolated Conclusion Non diagnostic stress test Spo2>95% on room air Carlos Kearns MD NM ORDERABLES Final Result * LIPID PANEL W CALCULATED LDL (08/28/2020 3:05 PM EST) CHOLESTEROL 122 107 - 217 MG/DL [address] TRIGLYCERIDE 107 0 - 150 MG/DL [address] HDL CHOLESTEROL 42 33 - 75 MG/DL [address] LDL CHOLESTEROL, CALCULATED 59 MG/DL [address] VLDL Cholesterol, Calculated 21 5.0 - 25 MG/DL [address] TCHOL/HDL RATIO, MANUAL ENTER 2.[address] Comment: RISK TOTAL/HDL RATIO MEN WOMEN 1/2 AVERAGE 3.43 3.27 AVERAGE 4.97 4.44 2X AVERAGE 9.55 7.05 3X AVERAGE 23.99 11.04 Testing performed at [place], [place] [address] Blood 08/28/2020 3:05 PM EST 08/28/2020 3:06 PM EST Carlos Kearns MD CHEMISTRY ORDERABLES Final Re sult [address] [address] * (ABNORMAL) BASIC METABOLIC PANEL (05/14/2020 8:50 AM EDT) Glucose 122(H) 70 - 100 MG/DL [address] Comment: NORMAL <100 mg/dL PREDIABETES 101-126 mg/dL DIABETES 126 mg/dL or higher BUN 17 7 - 20 MG/DL [address] CREATININE SERUM 0.80 0.7 - 1.2 MG/DL [address] SODIUM 139 137 - 145 MMOL/L [address] Potassium 3.9 3.5 - 5.1 MMOL/L [address] CHLORIDE 103 98 - 107 MMOL/L [address] Comment:Please note: Triglyc eride levels of 600mg/dL or higher may positively bias chloride results by approximately 2.1 mmol CARBON DIOXIDE (CO2) 26 22 - 30 MMOL/L [address] ANION GAP 10 8 - 16 MMOL/L [address] CALCIUM 9.5 8.4 - 10.2 MG/DL [address] ESTIMATED GFR, NON AMER >60 ml/min/1. 73sq.m [address] ESTIMATED GFR, >60 ml/min/1. 73sq.m [address] GFR COMMENT Average GFR for 60-69 years old = 85. [address] Comment: Chronic Kidney disease, GFR = <60. Kidney failure, GFR = <15. The GFR estimate is not adjusted for extreme body surface area or acute process, nor has it been validated for women or ethnic groups other than and . 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
--- OUTSIDE RECORDS SUMMARY | 2025-07-12 08:46 | XMS_ITS | Clinical Summary ---
Author Organization [facility] Address [address] [place], [place] [address] Care Team Providers Care Direct Support Specialist Name Role Phone Jack Castorena MD, PhD Unavailable [phone] Soham Sanford DO Primary Care Provider [phone] Allergies Active Allergy Reactions Criticality Noted Date Comments Bupropion Hcl Itching 08/17/2013 Medications carvedilol (COREG) 25 mg tablet Take 25 mg by mouth twice daily with meals. Active atorvastatin (LIPITOR) 80 mg tablet Take 80 mg by mouth once daily. Active Aspirin 81 mg tab Take 81 mg by mouth once daily. Currently not taking Active multivit with iron,minerals (MULTIVITAMIN AND MINERALS ORAL) Take 1 tablet by mouth one time only. Active coenzyme Q10 (COQ-10) 100 mg cap capsule Take 100 mg by mouth once daily. Active Cholecalciferol , Vitamin D3, (VITAMIN D-3) 50 mcg (2,000 unit) cap Take 1 capsule by mouth three times a day. Active amLODIPine (NORVASC) 10 mg tablet Take 10 mg by mouth every afternoon. Active ezetimibe (ZETIA) 10 mg tablet Take 10 mg by mouth every afternoon. Active acetaminophen (TYLENOL) 500 mg tablet Take 2 tablets by mouth every 8 hours as needed for pain. 60 [address] (PROTONIX) 40 mg tablet Take 1 tablet by mouth two times a day. 60 tablet 1 5 Active polyethylene glycol 3350 17 gram packet Take 1 packet by mouth once daily as needed. Dissolve dose in 4 - 8 ounces of liquid and take as directed. 10 packet 1 5 Active clopidogrel (PLAVIX) 75 mg tablet Take 1 tablet by mouth once daily. 90 tablet Active losartan (COZAAR) 50 mg tablet Take 1.5 tablets by mouth once daily. 45 tablet 1 Active amoxicillin-cla vulanate potassium (AUGMENTIN) 875-125 mg per tablet Take 1 tablet by mouth every 12 hours. 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 03/07/25 @ [facility] Pancreatitis 03/07/2025 03/06/2025 Lung nodule 03/07/2025 03/06/2025 Overview (03/07/2025): CT ABD 03/06/25: Indeterminate 1.0 cm right lower lobe groundglass nodular opacity may represent a focal infectious/inflammatory process. Fleischner Criteria recommendation: CT chest WO in 6-12 months Morbid obesity 03/07/2025 Overview (03/07/2025): Per outside records Nicotine dependence 03/07/2025 Overview (03/07/2025): Per outside records Coronary artery disease stat us post coronary stent insertion of RCA 03/07/20251997 Overview (03/07/2025): Per outside records Pancreatitis, unspecified pancreatitis type 02/24 GERD (gastroesophageal reflux disease) HLD (hyperlipidemia) 12/31/2014 HTN (hypertension) 12/31/2014 Severe PAD (peripheral artery disease) 5 Overview (03/07/2025): Severe PAD, per outside VascSurg and Cardiac records, s/p vascular surgical interventions S/P insertion of iliac artery stent 12/31/2014 Encounters Date Type Department Care Team Description 06/10/2025 4:00 PM EDT Office Visit Vascular Surg Dept [address] [place] [id number] Fannie Flowers MD Mesenteric artery stenosis (HCC) (Primary Dx); PAD (peripheral artery disease); Renal artery stenosis 06/10/2025 Travel 05/01/2025 9:33 AM EDT Anesthesia Event Admitting [address] [place] [address]66 Amber Evangelisat SRNA 05/01/2025 8:47 AM EDT - 05/01/2025 4:41 PM EDT Hospital Encounter Admitting [address] [place] [address] Fannie Flowers MD Mesenteric artery stenosis (HCC) [K55.1], PAD (peripheral artery disease) [I73.9] Discharge Disposition: Home 05/01/2025 8:15 AM EDT - 05/01/2025 12:28 PM EDT Surgery Admitting [address] [place] [phone] Fannie Flowers MD ENDOVASCULAR REVASCULARIZE PERCUTANEOUS ILIAC ARTERY UNILAT W/TRANSLUMINAL STENT & ANGIOPLASTY 05/01/2025 Travel 04/30/2025 Telephone Vascular Surg Dept [address] [place] [address] Fannie Flowers MD Appointment 04/24/2025 3:00 PM EDT Office Visit Cardiothoracic [address] [place] [phone] Encounter for preoperative anesthesiology assessment for vascular surgery (Primary Dx) 04/24/2025 1:30 PM EDT Procedure Cardiology [address] [place] [address] 04/24/2025 12:00 PM EDT Office Visit Vascular Surg Dept [address] [place] [phone] Celiac artery stenosis (Primary Dx); Renal artery stenosis; PAD (peripheral artery disease); Encounter for current residential use of antiplatelet drug; Pre-op examination; Encounter for education 04/24/2025 Travel 04/22/2025 Telephone Vascular Surg Dept [address] [phone] Fannie Flowers MD Patient Question from Last 3 Months Family History Medical History Relation Comments Developmental [...] lower number is lower ri sk 67 04/01/2025 State Score (1-10), lower number is lower risk 5 04/01/2025 Data from: https://www.neighborhoodatlas.medicine.[facility]/. 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 Not on file Not on file Last Filed Vital Signs Vital Sign Reading Time Taken Comments Blood Pressure 164/59 06/10/2025 3:00 PM EDT Pulse 74 06/10/2025 3:00 PM EDT Temperature 36.2 C (97.2 F) 05/01/2025 4:40 PM EDT Respiratory Rate 16 05/01/2025 4:40 PM EDT Oxygen Saturation 93% 05/01/2025 4:40 PM EDT Inhaled Oxygen Concentration - - Weight 68.9 kg (151 lb 12.8 oz) 05/01/2025 9:04 AM EDT Height 162.6 cm (5' 4 ) 05/01/2025 9:04 AM EDT Body Mass Index 26.06 05/01/2025 9:04 AM EDT Plan of Treatment Upcoming Encounters Date Type Department Care Team (Late st Contact Info) Description 09/16/2025 10:00 AM EST Office Visit Vascular Surgery [address] [place] [address] PAD (peripheral artery disease) 09/16/2025 11:00 AM EST Office Visit Vascular Surgery [address] [place] [address] PAD (peripheral artery disease) 09/16/2025 12:30 PM EST Office Visit Vascular Surg Dept [address] [place] [address] Fannie Flowers MD [address] [place] [address] PAD (peripheral artery disease) Health Maintenance Due Date Last Done Comments Annual PCP Team Chronic Dise ase Visit 1972 Anxiety Screening 1972 Depression Screening 1972 Hepatitis C Screening 1972 DTaP,Tdap,Td Vaccine (1 - Tdap) [address] Colonography 1999 Cologuard (FIT-DNA) 1999 Colonoscopy 1999 Colorectal Cancer Screening 1999 Fecal Occult Blood 1999 Sigmoidoscopy 1999 Lung Cancer Screening 2004 Pneumococcal Vaccine: 50+ (1 of 1 - PCV) 2004 RSV Vaccine (1 - Risk 60-74 years 1-dose series) 2014 Medicare Annual Wellness Visit 07/27/2019 Bone Density Screening 2019 Advance Directive Discussion 09/26/2024 Covid-19 Vaccine (3 - 2024-2 6 season) 2025 02/02/2021, 01/12/2021 Influenza Vaccine (#1) 2025 LDL Cholesterol 03/07/2026 03/07/2025, 02/24, 08/28/2020 Diabetes Screening 04/24/2028 04/24/2025, 0 03/08/2025, 03/07/2025, Additional history exists Lipid Screening 03/07/2030 03/07/2025, 02/24, 08/28/2020 Shingrix Vaccine Completed 12/29/2023, 07/29/2023 Goals Goal Patient Goal Type Associated Problems Recent Progress Patient-Stated? Author Blood Pressure < 130/80 Blood Pressure 164/59( 025 3:00 PM EDT) Fannie Ku MD Medical Devices Implanted Type Area Agricultural Research Technologist Device Identifier Shelf Expiration Date Model / Serial / Lot Stent Express Ld Tandem Architecture 7mm 30mm Metal 27mm 135cm Biliary Otw - [id number] Implanted:Qty: 1 on 05/01/2025 at [facility] Stent N/A: Artery - SMA [employer] 11/16/2027 [id number] / / [id number] Stent Epic 8mm 120cm Nitinol 80mm 159cm Vascular Self Expand Accepts 6fr - [id number] Implanted:Qty: 1 on 05/01/2025 at [facility] Vascular Stents Right: Artery - Iliac [employer] 06/27/2029 [id number] / / [id number] Procedures Procedure Name Priority Date/Time Associated Diagnosis Comments US MESENTERIC ARTERY CMPLT VAS LAB Routine 06/10/2025 11:08 AM EDT Mesenteric artery stenosis (HCC) EXTERNAL IMAGING 05/28/2025 7:49 AM EDT ACTIVATED CLOTTING TIME (POC) Routine 05/01/2025 12:01 PM EDT ACTIVATED CLOTTING TIME (POC) Routine 05/01/2025 10:33 AM EDT US VASC ACCESS SITS VSL PATENCY NDL ENTRY 05/01/2025 9:33 AM EDT Mesenteric artery stenosis (HCC) PAD (peripheral artery disease) ANGIOGRAPHY VISCERAL SLCTV/SUPRASLCTV RS&I 05/01/2025 9:33 AM EDT Mesenteric artery stenosis (HCC) PAD (peripheral artery disease) SLCTV CATHJ EA 1ST ORD ABDL PEL/LXTR ART BRNCH 05/01/2025 9:33 AM EDT Mesenteric artery stenosis (HCC) PAD (peripheral artery disease) OPEN/PERQ PLACEMENT INTRAVASCULAR STENT INITIAL 05/01/2025 9:33 AM EDT Mesenteric artery stenosis (HCC) PAD (peripheral artery disease) REVASCULARIZATION ILIAC ARTERY ANGIOP 1ST VSL 05/01/2025 9:33 AM EDT Mesenteric artery stenosis (HCC) PAD (peripheral artery disease) REVSC OPN/PRQ ILIAC ART W/STNT PLMT & ANGIOPLSTY 05/01/2025 9:33 AM EDT Mesenteric artery stenosis (HCC) PAD (peripheral artery disease) VASCULAR RADIATION DOSAGE REPORT Routine 05/01/2025 9:01 AM EDT TYPE + SCREEN,30 DAY Routine 04/24/2025 1:41 PM EDT Mesenteric artery stenosis (HCC) PAD (peripheral artery disease) Preop examination STAPHYLOCOCCUS AUREUS & MRSA SCREEN, PCR, NASAL Routine 04/24/2025 1:41 PM EDT Mesenteric artery stenosis (HCC) PAD (peripheral artery disease) Preop examination CBC + DIFF Routine 04/24/2025 1:41 PM EDT Mesenteric artery stenosis (HCC) PAD (peripheral artery disease) Preop examination BASIC METABOLIC PANEL Routine 04/24/2025 1:41 PM EDT Mesenteric artery stenosis (HCC) PAD (peripheral artery disease) Preop examination ECG COMPLETE Routine 04/24/2025 1:28 PM EDT Mesenteric artery stenosis (HCC) PAD (peripheral artery disease) Preop examination LIPID PANEL, NONFASTING Add-on 03/07/20 25 3:02 PM EDT from Last 3 Months or Most Recently Relevant to Health Maintenance Results * MESENTERIC ARTERY CMPLT VAS LAB (06/10/2025 11:08 AM EDT) 06/10/2025 11:0 8 AM EDT [facility] - 06/10/2025 5:06 PM EDT Non-Invasive Vascular Laboratory [facility] J35 Renal or Mesenteric Duplex Bilateral/Complete Date of service/time: 06/10/2025 11:08:17 AM Name: MS. IESHA RAMIREZ Date of : 1955 Age: 69 years Gender: F Clinical Indication SMA stent 05/01/2025. TECHNIQUE -------- A visceral duplex ultrasound examination was performed, including grayscale imaging and color Doppler and spectral Doppler examination of the below mentioned arteries and veins. FINDINGS -------- Aorta proximal PSV: 149 cm/s. EDV: 0 cm/s. Aorta at renals PSV: 122 cm/s. EDV: 0 cm/s. Aorta mid PSV: 96 cm/s. EDV: 0 cm/s. Aorta distal PSV: 82 cm/s. EDV: 0 cm/s. Celiac origin PSV: 422 cm/s. EDV: 258 cm/s. Celiac proximal PSV: 309 cm/s. EDV: 152 cm/s. Celiac mid PSV: 123 cm/s. EDV: 30 cm/s. Celiac distal PSV: 75 cm/s. EDV: 23 cm/s. Celiac with inspiration PSV: 596 cm/s. EDV: 171 cm/s. Hepatic proximal Retrograde flow. Splenic proximal PSV: 62 cm/s. EDV: 26 cm/s. Inferior mesenteric artery origin PSV: 674 cm/s. EDV: 0 cm/s. Inferior mesenteric artery proximal PSV: 89 cm/s. EDV: 0 cm/s. Inferior mesenteric artery mid PSV: 60 cm/s. EDV: 0 cm/s. Superior mesenteric artery origin with stent PSV: 365 cm/s. EDV: 66 cm/s. Superior mesenteric artery proximal with stent PSV: 520 cm/s. EDV: 77 cm/s. Superior mesenteric artery mid-distal to stent PSV: 347 cm/s. EDV: 0 cm/s. Superior mesenteric artery distal PSV: 159 cm/s. EDV: 0 cm/s. IMPRESSION Compared to prior study of 04/01/2025, 70-99% stenosis in celiac artery consistent with CTA 03/08/2024. Status post intervention , Superior mesenteric artery stent appears patent with elevated velocities and turbulent flow noted. No change in the inferior mesenteric artery. AORTA Aorta plaque noted without evidence of hemodynamically significant stenosis throughout MESENTERIC VESSELS Celiac: 70-99% stenosis. Consistent with CTA 03/08/2025. Hepatic: Patent. Retrograde flow noted. Splenic: Patent. Superior mesenteric artery: Patent. Elevated velocities with turbulent flow noted however stent appears patent with color Doppler. Inferior mesenteric artery: 70-99% stenosis. Technologist: Lucas Pickens RVT Etta Villegas RVT Ordering physician: FANNIE FLOWERS Interpreting physician: Jefe Cardenas MD Final See Link below for Image Fannie Flowers MD VASCULAR LAB Final Result Performing Organization Address [facility] Co de Phone Number [facility] [address] [place], [place] [id number] * EXTERNAL IMAGING (05/28/2025 7:49 AM EDT) Anatomical Region Laterality Modality Other External Provider PA-C RADIOLOGY Final Res ult * (ABNORMAL) ACTIVATED CLOTTING TIME (POC) (05/01/2025 12:01 PM EDT) Only the most recent of2 resultswithin the time period is included. [facility] Activated Clotting Time (POCT) 239(A) 74 - 137 sec [facility] 05/01/2025 12:0 1 PM EDT Narrative [facility] POINT OF CARE - 05/01/2025 12:01 PM EDT Location:[facility], [address] [place] [address], [facility] Fannie Flowers MD POC TESTING Final Result Performing Organization Address [facility]/ZIP Co de Phone Number [facility] POINT OF CARE [address] * STAPHYLOCOCCUS AUREUS & MRSA SCREEN, PCR, NASAL (04/24/2025 1:41 PM EDT) Pathologist [facility] Staphylococcus aureus DNA Not Detected Not Detected [employer] COVID19 04/24/2025 6:23 PM EDT [facility] Swab POSTERIOR NARES / Unknown Non Blood / Unknown 04/24/2025 1:41 PM EDT 04/24/2025 1:41 PM EDT Ashley Conroy APRN.[facility] Final R esult [facility] [address] [place] [address], [place] * TYPE AND SCREEN,30 DAY (04/24/2025 1:41 PM EDT) ABO O 04/24/2025 8:11 PM EDT MAIN BLOOD BANK Rh(D) Positive 04/24/2025 8:11 PM EDT MAIN BLOOD BANK Antibody Screen Negative 04/24/2025 8:11 PM EDT [facility] Blood BLOOD SPECIMEN / Unknown Venipuncture / Unknown 04/24/2025 1:41 PM EDT 04/24/2025 1:41 PM EDT Ashley Conroy TRAFFIC RECORDER.VENEER REPAIRER MACHINE BLOOD BANK Final R esult Performing Organization Address City/[facility] Co de Phone Number [facility] [address] [place] [address], [place] * COMPLETE BLOOD COUNT AND DIFFERENTIAL (04/24/2025 1:41 PM EDT) WBC 7.46 3.70 - 11.00 k/uL 04/24/2025 4:31 PM EDT [facility] RBC 4.28 3.90 - 5.20 m/uL 04/24/2025 4:31 PM EDT [facility] Hemoglobin 12.6 11.5 - 15.5 g/dL 04/24/2025 4:31 PM EDT [facility] Hematocrit 37.6 36.0 - 46.0 % 04/24/2025 4:31 PM EDT [facility] MCV 87.9 80.0 - 100.0 fL 04/24/2025 4:31 PM EDT [facility] MCH 29.4 26.0 - 34.0 pg 04/24/2025 4:31 PM EDT [facility] MCHC 33.5 30.5 - 36.0 g/dL 04/24/2025 4:31 PM EDT [facility] RDW-CV 13.9 11.5 - 15.0 % 04/24/2025 4:31 PM EDT [facility] Platelet Count 236 150 - 400 k/uL 04/24/2025 4:31 PM EDT [facility] MPV 11.9 9.0 - 12.7 fL 04/24/2025 4:31 PM EDT [facility] Neutrophils % 67.0 % 04/24/2025 4:31 PM EDT [facility] Abs Neut 5.00 1.45 - 7.50 k/uL 04/24/2025 4:31 PM EDT [facility] Lymphocytes % 18.5 % 04/24/2025 4:31 PM EDT [facility] Abs Lymph 1.38 1.00 - 4.00 k/uL 04/24/2025 4:31 PM EDT [facility] Monocytes % 9.4 % 04/24/2025 4:31 PM EDT [facility] Abs [place] 0.70 <0.87 k/uL 04/24/2025 4:31 PM EDT [facility] Eosinophils % 4.4 % 04/24/2025 4:31 PM EDT [facility] Abs Eosin 0.33 <0.46 k/uL 04/24/2025 4:31 PM EDT [facility] Basophils % 0.4 % 04/24/2025 4:31 PM EDT [facility] Abs Baso 0.03 <0.11 k/uL 04/24/2025 4:31 PM EDT [facility] Immature Granulocytes % 0.3 % 04/24/2025 4:31 PM EDT [facility] Abs Immature Gran <0.03 <0.10 k/uL 04/24/ 025 4:31 PM EDT [facility] NRBC 0.0 /100 WBC 04/24/2025 4:31 PM EDT [facility] Absolute nRBC <0.01 <0.01 k/uL 04/24/2025 4:31 PM EDT [facility] Diff Type Auto 04/24/2025 4:31 PM EDT [facility] Blood BLOOD SPECIMEN / Unknown Venipuncture / Unknown 04/24/2025 1:41 PM EDT 04/24/2025 1:41 PM EDT us Ashley Conroy TRAFFIC RECORDER.VENEER REPAIRER MACHINE LABORATORY Final R esult [facility] [address] [facility] [address] [address], [place] * (ABNORMAL) BASIC METABOLIC PANEL (04/24/2025 1:41 PM EDT) Glucose 97 74 - 99 mg/dL 04/24/2025 10:27 PM EDT [facility] Comment: The [place] Diabetes Association (ADA) provides guidance for cutoff values for fasting glucose and random glucose. The ADA defines fasting as no caloric intake for at least 8 hours. Fasting plasma glucose results between 100 to 125 mg/dL indicate increased risk for diabetes (prediabetes). Fasting plasma glucose results greater than or equal to 126 mg/dL meet the criteria for diagnosis of diabetes. In the absence of unequivocal hyperglycemia, results should be confirmed by repeat testing. In a patient with classic symptoms of hyperglycemia or hyperglycemic crisis, random plasma glucose results greater than or equal to 200 mg/dL meet the criteria for diagnosis of diabetes. Reference: Standards of Medical Care in Diabetes 2016, [place] Diabetes Association. Diabetes Care. 2016.39(Suppl 1). BUN 23(H) 7 - 21 mg/dL 04/24/2025 10:27 PM EDT [facility] Creatinine 1.30(H) 0.58 - 0.96 mg/dL 04/24/2025 10:27 PM EDT [facility] Sodium 138 136 - 144 mmol/L 04/24/2025 10:27 PM EDT [facility] Potassium 4.1 3.7 - 5.1 mmol/L 04/24/2025 10:27 PM EDT [facility] Chloride 103 98 - 107 mmol/L 04/24/2025 10:27 PM EDT [facility] CO2 21(L) 22 - 30 mmol/L 04/24/2025 10:27 PM EDT [facility] Anion Gap 14 8 - 15 mmol/L 04/24/2025 10:27 PM EDT [facility] Calcium, Total 9.2 8.5 - 10.2 mg/dL 04/24/2025 10:27 PM EDT [facility] Estimated Glomerular Filtration Rate 44(L) >=60 mL/min/1. 73m 04/24/2025 10:27 PM EDT [facility] Comment:Estimated Glomerular Filtration Rate (eGFR) is calculated using the 2020 CKD-EPI creatinine equation. This equation utilizes serum creatinine, sex, and age as parameters. The creatinine assay has traceable calibration to isotope dilution- mass spectrometry. Refer to KDIGO guidelines for clinical interpretation. In patients with unstable renal function, e.g. those with acute kidney injury, the eGFR may not accurately reflect actual GFR. Blood BLOOD SPECIMEN / Unknown Venipuncture / Unknown 04/24/2025 1:41 PM EDT 04/24/2025 1:41 PM EDT us Ashley Conroy TRAFFIC RECORDER.VENEER REPAIRER MACHINE LABORATORY Final R esult [facility] [address] [place] [address], * ECG COMPLETE (04/24/2025 1:28 PM EDT) Ventricular Rate 54 BPM [facility] Atrial Rate 54 BPM [facility] P-R Interval 144 ms [facility] QRS Duration 88 ms [facility] QT Interval 460 ms [facility] QTC Calculation (Bazett) 436 ms [facility] Calculated P [place] 74 degrees [facility] Calculated R [place] -2 degrees [facility] Calculated T [place] 57 degrees [facility] 04/24/2025 1:28 PM EDT Impressions [facility] [place] - 07/05/2025 2:56 PM EDT SINUS BRADYCARDIA MINIMAL VOLTAGE CRITERIA FOR LVH, MAY BE NORMAL VARIANT ( [place] product ) ANTEROSEPTAL MYOCARDIAL INFARCTION , AGE UNDETERMINED ABNORMAL ECG Confirmed by MD GARCIA TAMANNA ([id number]) on 07/05/2025 2:56:07 PM Narrative [facility] [place] - 07/05/2025 2:56 PM EDT NAME : IESHA RAMIREZ PID : [id number] : 1955 Gender : Female Race : ORD : [id number] Procedure Date : Apr 24 2025 13:28:24 Edit Date : Jul 05 2025 14:56:17 Diagnosis: SINUS BRADYCARDIA MINIMAL VOLTAGE CRITERIA FOR LVH, MAY BE NORMAL VARIANT ( [place] product ) ANTEROSEPTAL MYOCARDIAL INFARCTION , AGE UNDETERMINED ABNORMAL ECG Confirmed by MD GARCIA TAMANNA ([id number]) on 07/05/2025 2:56:07 PM Test Reason : Location : 314 : J14 J14 Overread By : MD GARCIA TAMANNA Edited By : MD GARCIA TAMANNA Referred By : ASHLEY CONROY Acquired by : SHERRILL YEAGER us Ashley Conroy TRAFFIC RECORDER.VENEER REPAIRER MACHINE EKG Final R esult [facility] [place] [address] [id number] * LIPID PANEL, NONFASTING (03/07/2025 3:02 PM EDT) Total Cholesterol, Nonfasting 121 <200 mg/dL 03/08/2025 9:13 AM EDT [facility] Comment: <200 mg/dL, Desirable 200-239 mg/dL, Borderline high >239 mg/dL, High Triglycerides, Nonfasting 96 <150 mg/dL 03/08/2025 9:13 AM EDT [facility] Comment: <150 mg/dL, Normal 150-199 mg/dL, Borderline high 200-499 mg/dL, High >499 mg/dL, Very high HDL Cholesterol, Nonfasting 44 >39 mg/dL 03/08/2025 9:13 AM EDT [facility] Comment: 40-59 mg/dL, Acceptable >59 mg/dL, High: Negative risk factor for coronary heart disease <40 mg/dL, Low: Positive risk factor for coronary heart disease LDL Cholesterol Calculated, Nonfasting 59 <100 mg/dL 03/08/2025 9:13 AM T [facility] Comment: <100 mg/dL, Optimal 100-129 mg/dL, Near optimal/above optimal 130-159 mg/dL, Borderline high 160-189 mg/dL, High >189 mg/dL, Very high Secondary prevention optimal LDL Cholesterol levels are recommended to be <70 mg/dL LDL cholesterol is calculated using the Bazan-NIH equation. Non HDL Cholesterol, Nonfasting 77 <130 mg/dL 03/08/2025 9:13 AM EDT [facility] Comment: <130 mg/dL, Optimal 130-159 mg/dL, Near optimal/above optimal 160-189 mg/dL, Borderline high 190-219 mg/dL, High >219 mg/dL, Very high Secondary prevention optimal non HDL Cholesterol levels are recommended to be <100 mg/dL VLDL Cholesterol, Nonfasting 14 <30 mg/dL 03/08/2025 9:13 AM T [facility] Total Chol/HDL Ratio, Nonfasting 2.75 <5.10 mg/dL 03/08/2025 9:13 AM EDT [facility] LDL/HDL Ratio, Nonfasting 1.34 <2.54 mg/dL 03/08/2025 9:13 AM [facility] Comment: Reference: 1. National Cholesterol Education Program ATP III Guideline At-A-Glance Quick Desk Reference: National Heart, Lung, and Blood [place]. National Institutes of Health. 2001: NIH Publication No. 01-3305. 2. An International Atherosclerosis Society position paper: global recommendations for the management of dyslipidemia: executive summary, Atherosclerosis. 2014: 232(2):410-413. Blood BLOOD SPECIMEN / Unknown Venipuncture / Unknown 03/07/2025 3:02 PM EDT 03/07/2025 3:21 PM EDT Rajat Reza MD LABORATORY Final Result [facility] [facility] [address] [facility] [address] [place] [address], [place] from Last 3 Months or Most Recently Relevant to Health Maintenance Insurance MEDICARE [employer] SUPPLEMENT Advance Directives * Full Code (Latest Code Status on File) Date Activated Date Inactivated Comments 03/08/2025 11:41 AM 03/10/2025 4:56 PM Question Answer Comments Full Code Order Discussed With: Patient and Surr ogate Decision Maker Care Teams Direct Support Specialist Relationship Specialty Start Date End Date Soham Sanford DO [address] [place] [address] [address] [place] [address] PCP - General Internal Medicine 04/01/25 Jack Castorena MD, PhD Primary Staff Physician Cardiology 12/12/18
[2025-07-12 09:59] LABS: Anion Gap 12.5; Blood Urea Nitrogen 23.0 mg/dL (7.0-18.0); Calcium 8.7 mg/dL (8.5-10.1); Carbon Dioxide 26.7 mmol/L (21.0-32.0); Chloride 105 mmol/L (98-107); Estimated GFR (African America 44 (>=60 mL/min/1.73m^2); Estimated GFR (Non-African Ame 36 (>=60 mL/min/1.73m^2); Glucose 93 mg/dL (74-106); Potassium 4.2 mmol/L (3.5-5.1); Sodium 140 mmol/L (136-145)
[2025-07-12 15:19] LABS: Microalbum Creatinine Ratio Ur 18.2 mg/g (0.0-29.9)
== END 2025-07-12 08:44 | disposition home or self-care (01) ==
LOC: US 08:43
PROVIDERS: PCP Internal Medicine; Visit Provider Internal Medicine
DX: N28.1 Cyst of kidney, acquired (principal); N18.32 Chronic kidney disease, stage 3b; N20.0 Calculus of kidney
CPT/HCPCS: 36415; 76775; 80048; 82043; 82570